=== PATIENT | female | born 1935 | race Caucasian/White ===

== ENCOUNTER 2018-05-08 14:00 | Emergency (ER) | payer OTHER ==
[~2018-05-08] VITALS: Ht 165.1 cm; Wt 54.4 kg
--- NOTE | 2018-05-08 14:18 | NUR ---
PT IS IN ROOM #1B. DR SCHMIDT EVALUATED THE PT.
[2018-05-08] MEDS ORDERED: HYDROCODONE/APAP 5-325MG TABLET PO ONE (14:30)
[2018-05-08] MEDS ORDERED: HYDROCODONE/APAP 5-325MG TABLET ONE (14:59)
--- NOTE | 2018-05-08 16:38 | NUR ---
PT WAS D/C'd TO HOME. D/C INSTRUCTIONSGIVEN TO THE PT.
[2018-05-08 16:45] VITALS: BP 135/77
== END 2018-05-08 16:46 | disposition home or self-care (01) ==
LOC: ER 14:00
DX: M25.552 Pain in left hip (principal); W01.0XXA Fall on same level from slipping, tripping and stumbling without subsequent striking against object, initial encounter; Y93.89 Activity, other specified; Y92.89 Other specified places as the place of occurrence of the external cause; Y99.8 Other external cause status
CPT/HCPCS: 72170; 73502; 73700; A4663